=== PATIENT | male | born 1945 | race Hispanic/Latino ===

== ENCOUNTER 2019-11-07 12:49 | Emergency (ER) | payer OTHER ==
[2019-11-07] MEDS ORDERED: FAMOTIDINE 20 MG/2 ML VIAL IV ONE (12:59)
[2019-11-07] MEDS ORDERED: METHYLPREDNISOLONE 125 MG INJ ONE (12:59)
--- OUTSIDE RECORDS SUMMARY | 2019-11-07 13:43 | XMS REPORT ---
:1945 Author Organization [facility] t Address [address] [place] [address] Dr. Hansen [address] [place] [id number] Care Team Providers Name Role Phone Unavailable Unavailable Unavailable Problems This patient has no known problems. Allergies, Adverse Reactions, Alerts This patient has no known allergies or adverse reactions. Medications This patient has no known medications. Procedures This patient has no known procedures. Results This patient has no known results.
[2019-11-07] MEDS ORDERED: ONDANSETRON 4 MG/2 ML VIAL ONE (13:46)
--- NOTE | 2019-11-07 15:36 | ER ---
Nurse's Notes [facility] Name: Jacobo Patel Age: 74 yrs Sex: Male : 1945 Arrival Date: 11/07/2019 Time: 12:56 Bed 2 Private MD: Diagnosis: Bee allergy status Presentation: 11/06 12:56 Chief complaint: EMS states: STUNG BY SWARM OF BEES. Coronavirus screen: Proceed with bp normal triage. Ebola Screen: No symptoms or risks identified at this time. Onset: The symptoms/episode began/occurred suddenly, 30 minute(s) ago. Anaphylaxis evaluation, no signs or symptoms of anaphylaxis were noted. Initial Sepsis Screen: Does the patient meet any 2 criteria? HR > 90 bpm. No. Patient's initial sepsis screen is negative. Does the patient have a suspected source of infection? No. Patient's initial sepsis screen is negative. Risk Assessment: Do you want to hurt yourself or someone else? Patient reports no desire to harm self or others. Onset of symptoms was November 07, 2019 at 12:00. 12:56 Method Of Arrival: EMS: [facility] bp 12:56 Acuity: FAM 3 bp 12:56 Care prior to arrival: Medication(s) given: BENADRYL 50MG IVP IV initiated. 20 GA, in bp the left antecubital area. Triage Assessment: 12:59 General: Appears in no apparent distress. comfortable, Behavior is calm, cooperative, bp appropriate for age. Pain: Complains of pain in GENERALIZED. EENT: Throat is clear. Neuro: No deficits noted. Cardiovascular: Rhythm is sinus tachycardia. Respiratory: Airway is patent Respiratory effort is even, unlabored, Respiratory pattern is regular, symmetrical. GI: No signs and/or symptoms were reported involving the gastrointestinal system. : No signs and/or symptoms were reported regarding the genitourinary system. Derm: MX SCATTERED BEE STINGS TO ARMS AND HEAD. Musculoskeletal: No deficits noted. Historical: - Allergies: 12:59 No Known Allergies; bp - Home Meds: 12:59 None [Active]; bp - PMHx: 12:59 Hyperlipidemia; Hypertension; bp - Immunization history:: Adult Immunizations unknown. - Social history:: Smoking status: Patient denies any tobacco usage or history of. Screenin:03 Abuse screen: Denies threats or abuse. Denies injuries from another. Nutritional bp screening: No deficits noted. Tuberculosis screening: No symptoms or risk factors identified. Fall Risk None identified. Assessment: 13:03 General: SEE TRIAGE NOTE. Respiratory: Airway is patent Breath sounds are clear bp bilaterally. 13:27 Reassessment: 64 STINGERS EXTRACTED. AIRWAY REMAINS PATENT, VS STABLE. bp 15:21 Reassessment: NO FURTHER COMPLICATIONS, AIRWAY REMAINS PATENT. bp 15:40 Reassessment: PT D/C HOME WITH FAMILY, DX WITH BEE STING. bp Vital Signs: 12:56 BP 151 / 81; Pulse 104; Resp 16; Temp 98; Pulse Ox 95% ; bp 13:27 BP 162 / 83; Pulse 99; Resp 16; Pulse Ox 96% ; bp 14:30 BP 145 / 82; Pulse 99; Resp 16; Pulse Ox 96% ; bp 15:17 BP 152 / 62; Pulse 98; Resp 16; Pulse Ox 96% ; bp ED Course: 12:56 Patient arrived in ED. bp 12:58 Triage completed. bp 13:00 [facility]C [facility]. kb 13:00 Jalen Pierre MD is Attending Physician. kb 13:00 Maintain EMS IV. Dressing intact. Good blood return noted. Site clean \T\ dry. Gauge \T\ bp site: 20 GAUGE LEFT AC. 13:02 Arm band placed on. bp 13:03 Jose C Vora, RN is Primary Nurse. bp 13:03 Patient has correct armband on for positive identification. Bed in low position. Call bp light in reach. Side rails up X2. 15:41 No provider procedures requiring assistance completed. IV discontinued, intact, bp bleeding controlled, No redness/swelling at site. Pressure dressing applied. Administered Medications: 13:05 Drug: NS 0.9% 1000 ml Route: IV; Rate: 1000 ml; Site: left antecubital; bp 15:41 Follow up: IV Status: Completed infusion; IV Intake: 1000ml bp 13:06 Drug: Pepcid 20 mg Route: IVP; Site: left antecubital; bp 13:40 Follow up: Response: No adverse reaction bp 13:06 Drug: SOLU-Medrol 125 mg Route: IVP; Site: left antecubital; bp 13:40 Follow up: Response: No adverse reaction bp 13:40 Drug: Zofran (Ondansetron) 4 mg Route: IVP; Site: left antecubital; bp 13:40 Follow up: Response: No adverse reaction bp Intake: 15:41 IV: 1000ml; Total: 1000ml. bp Outcome: 15:35 Discharge ordered by . chang 15:41 Discharged to home ambulatory. bp 15:41 Condition: stable 15:41 Discharge instructions given to patient, Instructed on discharge instructions, follow up and referral plans. medication usage, Demonstrated understanding of instructions, follow-up care, medications, Prescriptions given X 2. 16:08 Patient left the ED. bp Signatures: Susan Chen, CYTOTECHNOLOGIST/CYTOLOGY SUPERVISOR-C CYTOTECHNOLOGIST/CYTOLOGY SUPERVISOR-Jose C Atkinson, RN RN bp
--- NOTE | 2019-11-07 15:36 | EDPHYS ---
Physician Documentation [facility] Name: Jacobo Patel Age: 74 yrs Sex: Male : 1945 Arrival Date: 11/07/2019 Time: 12:56 Bed 2 Private MD: ED Physician Jalen Pierre HPI: 11/06 15:32 This 74 yrs old Male presents to ER via EMS with complaints of Bee Sting. kb 15:33 The patient was bitten on the face, scalp, right arm and left arm, by a bee, after kb disturbing a nest, outdoors. Onset: The symptoms/episode began/occurred just prior to arrival. Associated signs and symptoms: Pertinent positives: pain at site, swelling at site. Severity of symptoms: At their worst the symptoms were moderate, in the emergency department the symptoms are unchanged. The patient has not experienced similar symptoms in the past. The patient has not recently seen a physician. Pt was cutting a palm tree and got into a bee hive. Pt was stung multiple times to upper extremities and head. No anaphylactic reaction noted. No hives, shortness of breat. Historical: - Allergies: 12:59 No Known Allergies; bp - Home Meds: 12:59 None [Active]; bp - PMHx: 12:59 Hyperlipidemia; Hypertension; bp - Immunization history:: Adult Immunizations unknown. - Social history:: Smoking status: Patient denies any tobacco usage or history of. ROS: 15:31 Constitutional: Negative for fever, chills, and weight loss, Neck: Negative for injury, kb pain, and swelling, Cardiovascular: Negative for chest pain, palpitations, and edema, Respiratory: Negative for shortness of breath, cough, wheezing, and pleuritic chest pain, Abdomen/GI: Negative for abdominal pain, nausea, vomiting, diarrhea, and constipation, Back: Negative for injury and pain, MS/Extremity: Negative for injury and deformity, Neuro: Negative for headache, weakness, numbness, tingling, and seizure. 15:31 Skin: Positive for bee stings. Exam: 15:31 Constitutional: This is a well developed, well nourished patient who is awake, alert, kb and in no acute distress. Chest/axilla: Normal chest wall appearance and motion. Nontender with no deformity. No lesions are appreciated. Cardiovascular: Regular rate and rhythm with a normal S1 and S2. No gallops, murmurs, or rubs. Normal PMI, no JVD. No pulse deficits. Respiratory: Lungs have equal breath sounds bilaterally, clear to auscultation and percussion. No rales, rhonchi or wheezes noted. No increased work of breathing, no retractions or nasal flaring. Abdomen/GI: Soft, non-tender, with normal bowel sounds. No distension or tympany. No guarding or rebound. No evidence of tenderness throughout. MS/ Extremity: Pulses equal, no cyanosis. Neurovascular intact. Full, normal range of motion. Neuro: Awake and alert, GCS 15, oriented to person, place, time, and situation. Cranial nerves II-XII grossly intact. Motor strength 5/5 in all extremities. Sensory grossly intact. Cerebellar exam normal. Normal gait. 15:31 Head/face: Noted is no obvious of injury or deformity except multiple bee stings on face and head. 15:31 Musculoskeletal/extremity: Extremities: grossly normal except: noted in the right arm and left arm: multiple bee stings, ROM: no acute changes, Circulation is intact in all extremities. Sensation intact. Vital Signs: 12:56 BP 151 / 81; Pulse 104; Resp 16; Temp 98; Pulse Ox 95% ; bp 13:27 BP 162 / 83; Pulse 99; Resp 16; Pulse Ox 96% ; bp 14:30 BP 145 / 82; Pulse 99; Resp 16; Pulse Ox 96% ; bp 15:17 BP 152 / 62; Pulse 98; Resp 16; Pulse Ox 96% ; bp MDM: 13:00 Patient medically screened. kb 15:32 Data reviewed: vital signs, nurses notes. Data interpreted: Pulse oximetry: on room air kb is 96 %. Interpretation: normal. Counseling: I had a detailed discussion with the patient and/or guardian regarding: the historical points, exam findings, and any diagnostic results supporting the discharge/admit diagnosis, the need for outpatient follow up, a family practitioner, to return to the emergency department if symptoms worsen or persist or if there are any questions or concerns that arise at home. 11/06 13:01 [place] [facility] [place] stingers; Complete Time: 13:05 kb Administered Medications: 13:05 Drug: NS 0.9% 1000 ml Route: IV; Rate: 1000 ml; Site: left antecubital; bp 15:41 Follow up: IV Status: Completed infusion; IV Intake: 1000ml bp 13:06 Drug: Pepcid 20 mg Route: IVP; Site: left antecubital; bp 13:40 Follow up: Response: No adverse reaction bp 13:06 Drug: SOLU-Medrol 125 mg Route: IVP; Site: left antecubital; bp 13:40 Follow up: Response: No adverse reaction bp 13:40 Drug: Zofran (Ondansetron) 4 mg Route: IVP; Site: left antecubital; bp 13:40 Follow up: Response: No adverse reaction bp Disposition: 16:18 Co-signature as Attending Physician, Jalen Pierre MD I agree with the assessment and kdr plan of care. Disposition: 11/07/19 15:35 Discharged to Home. Impression: Bee allergy status. - Condition is Stable. - Discharge Instructions: Bee, Wasp, or Hornet Sting, Adult. - Prescriptions for Pepcid 20 mg Oral Tablet - take 1 tablet by ORAL route every 12 hours for 5 days; 10 tablet. Prednisone 20 mg Oral Tablet - take 1 tablet by ORAL route once daily for 5 days; 5 tablet. - Medication Reconciliation Form, Thank You Letter, Antibiotic Education, Prescription Opioid Use form. - Follow up: Private Physician; When: 2 - 3 days; Reason: Recheck today's complaints, Continuance of care, Re-evaluation by your physician. Follow up: Emergency Department; When: As needed; Reason: Worsening of condition. Signatures: Susan Chen, MORPHOLOGIST-C MORPHOLOGIST-Ckb Jalen Pierre MD MD kdr Peltier, Brian, DUDLEY RN bp Corrections: (The following items were deleted from the chart) 16:08 15:35 11/07/2019 15:35 Discharged to Home. Impression: Bee allergy status. Condition is bp Stable. Forms are Medication Reconciliation Form, Thank You Letter, Antibiotic Education, Prescription Opioid Use. Follow up: Private Physician; When: 2 - 3 days; Reason: Recheck today's complaints, Continuance of care, Re-evaluation by your physician. Follow up: Emergency Department; When: As needed; Reason: Worsening of condition. kb
[2019-11-07 16:22] VITALS: TEMP 98
[2019-11-07 16:24] VITALS: O2SAT 96
[2019-11-07 16:26] VITALS: BP 152/62
== END 2019-11-07 16:08 | disposition home or self-care (01) ==
LOC: ER 12:49
DX: S00.86XA Insect bite (nonvenomous) of other part of head, initial encounter (principal); Z91.030 Bee allergy status; I10 Essential (primary) hypertension
CPT/HCPCS: 96361; 96375; 96374; 99284; J2930; J2405